=== PATIENT | male | born 2000 | race African-American/Black ===

== ENCOUNTER 2024-09-25 05:16 | Emergency (ER) | payer OTHER ==
[~2024-09-25] VITALS: Ht 172.7 cm; Wt 112.0 kg
[2024-09-25 05:27] VITALS: BP 130/90; PULSE 95; RESP 20; O2SAT 97
--- NOTE | 2024-09-25 06:04 | DVH ---
EXAM: CT HEAD WITHOUT CONTRAST INDICATION: Head Injury TECHNIQUE: CT of the head without intravenous contrast. Radiation Dose : 1. Head: CT Dose: CTDI volume is 63 mGy. Dose-length product is 1102 mGy*cm The dose indicators for CT are the volume Computed Tomography (CT) Dose Index (CTDIvol) and the Dose Length Product (DLP), and are measured in units of mGy and mGy-cm, respectively. These indicators are not patient dose, but values generated from the CT scanner acquisition factors. The report includes radiation exposure data for exposures received during this examination. COMPARISON: None FINDINGS: There is no evidence of acute intracranial hemorrhage, extra-axial collection, mass effect, midline s hift, herniation or hydrocephalus. The ventricles, sulci and cisterns are age appropriate. The reed-white differentiation is intact. The visualized paranasal sinuses and mastoid air cells are clear. The surrounding soft tissues and osseous structures are unremarkable. IMPRESSION: No acute intracranial abnormality. Radiation optimization: All CT scans at this facility use at least one of these dose optimization jose hniques: automated exposure control mA and/or kV adjustment per patient size (includes targeted exam s where dose is matched to clinical indication) or iterative reconstruction.
--- NOTE | 2024-09-25 06:04 | DVH ---
EXAM: CT CERVICAL WITHOUT CONTRAST HISTORY: Fall Injury COMPARISON: None CTDIvol 27 mGy, DLP 684 mGy*cm. TECHNIQUE: Multiple axial CT images of the spine were obtained using bone algorithm. Axial and coron al reformatting was done. Bone and soft tissue windows were reviewed. FINDINGS: No CT evidence of definite acute fracture, spinal dislocation, or significant appearing acute subluxa tion is seen. The visualized paraspinal soft tissues are grossly unremarkable. IMPRESSION: No definite CT evidence of acute fracture or dislocation of the bony cervical spine.
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
[2024-09-25] MEDS ORDERED: HALOPERIDOL LACTATE 5 MG/ML INJ VIAL ONE (12:42)
[2024-09-25] MEDS ORDERED: LORazepam 2MG/ML-1ML VIAL ONE (12:42)
== END 2024-09-25 07:26 | disposition left against medical advice (07) ==
LOC: ER 05:16
DX: S09.90XA Unspecified injury of head, initial encounter (principal); Z88.1 Allergy status to other antibiotic agents; Y04.8XXA Assault by other bodily force, initial encounter; Y93.89 Activity, other specified; Y92.488 Other paved roadways as the place of occurrence of the external cause; Y99.8 Other external cause status
CPT/HCPCS: 70450; 72125; 82947; 82962

== ENCOUNTER 2024-09-25 12:00 | Emergency (ER) | payer OTHER ==
[~2024-09-25] VITALS: Ht 172.7 cm; Wt 120.0 kg
[2024-09-25 12:30] VITALS: PULSE 97; RESP 18; O2SAT 95
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
[2024-09-25] MEDS: LORazepam 2MG/ML-1ML VIAL IM ONE ×2 (12:48→12:50)
[2024-09-25] MEDS: HALOPERIDOL LACTATE 5 MG/ML INJ VIAL IM ONE ×2 (12:49→12:50)
--- NOTE | 2024-09-25 13:52 | DVH ---
EXAM: CT HEAD WITHOUT CONTRAST INDICATION: fall TECHNIQUE: CT of the head without intravenous contrast. Radiation dose : 1. Head: CT Dose: CTDI volume is 47.84 mGy. Dose-length product is 865.61 mGy*cm The dose indicators for CT are the volume computed tomography (CT) dose index (CTDIvol) and the dose length product (DLP), and are measured in units of mGy and mGy-cm, respectively. These indicators are not patient dose, but values generated from the CT scanner acquisition factors. The report includes radiation exposure data for exposures received during this examination. COMPARISON: CT HEAD WITHOUT CONTRAST on DOS: 09/25/24, CT CERVICAL WITHOUT CONTRAST on DOS: 09/25/24 FINDINGS: There is no evidence of acute intracranial hemorrhage, extra-axial collection, mass effect, midline s hift, herniation or hydrocephalus. The ventricles, sulci and cisterns are age appropriate. The reed-white differentiation is intact. Patchy periventricular and subcortical white matter hypoattenuation is nonspecific but may be related to small vessel ischemic disease. The visualized paranasal sinuses and mastoid air cells are clear. The surrounding soft tissues and osseous structures are unremarkable. IMPRESSION: 1. No acute intracranial abnormality. Radiation optimization: All CT scans at this facility use at least one of these dose optimization jose hniques: Automated exposure control mA and/or kV adjustment per patient size (includes targeted exams where dose is matched to clinical indication) or iterative reconstruction.
[2024-09-25 18:15] VITALS: BP 99/60; RESP 15; O2SAT 98
--- NOTE | 2024-09-25 20:34 | DVHINCON2 ---
Date of Service if different f: Sep 25, 2024 Time of Service: 20:31 Consult Consult Note PSYCHIATRY ED NEW CONSULT HPI: 24 yo M pt with unclear PPH presents to ED BIBA for safety, psychiatric stabilization and possible med initiation/optimization in setting of homelessness, med noncompliance, AH, and AMS. Psychiatry consulted for safety evaluation and recommendations in context of current presentation Per report, pt found outside of grocery store with erratic behavior, hallucination, paranoid, refusing EMS intervention, required IM Versed en route to ED, combative and restless in ED necessitating 4 point and chemical restraints Per pt, reports "i have been homeless recently and just feeling really out it, I just need a place to rest and get help with housing" Currently denies depressed mood, hopelessness, helplessness, isolation, negative thoughts, loss of interest, or anhedonia. Denies anxiety/panic/OCD/PTSD symptoms. Adamantly denies SI/HI. Denies AVH/paranoia/catatonic/perceptual disturbances/personality changes. No overt manic, psychotic, major depressive, dissociative phenomena, panic, or somatic symptoms noted although pt still a bit drowsy Appears somewhat future oriented/goal directed Pt currently does not have psychiatrist/therapist out in community although has sought outpt MH services in past as a teen. Currently not on any psychotropic agents for almost a decade. Prior psych med trials include quetiapine and Fluoxetine as teen. Denies ETOH, THC or IDU prior to admission or hx of Never , no children, unemployed and homeless for past several months, no legal issues, no support system noted. Unknown trauma hx. Unknown FH. No acute medical issues although c/o headaches Does not have hx of suicide attempts, SIB/PSG, or prior psych hospitalizations/5150. Denies history of violence, aggression, or assaultive behaviors. Does not have access to firearms. Currently denies SI/HI/AVH. No safety concerns noted during encounter. MSE: General Appearance/Behavior: Alert and somewhat awake; appears bit older than stated age, overweight, disheveled, calm and cooperative, fair eye contact, no PMA/PMR, questionable historian Speech: coherent, slow rate, not overly spontaneous Thought Process: linear, logical, limited/concrete Thought Content: Abnormal Thoughts and Perceptions: None Homicidality / Violent Thoughts: None Suicidality: adamantly denies SI Hallucinations: denies AVH Delusions: denies paranoia, persecutory, or grandiose delusions Obsessions /compulsions : None Judgment and Insight: marginal/improved judgment with somewhat fair insight Mood & Affect: "just tired" with mood-congruent, appropriate Orientation: oriented to person, place, time Attention/Concentration: appears intact Memory: grossly intact Language: no unusual or inappropriate language Assessment: 24 yo M pt with unclear PPH presents to ED BIBA for safety, psychiatric stabilization and possible med initiation/optimization in setting of homelessness, med noncompliance, AH, and AMS Currently denies SI/HI/AVH - pt slowly appears to be more lucid and less thought disordered. 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 Thus, pt does not meet criteria for 5150 or involuntary inpatient psych admission as is not DTS, DTO or GD although voluntary inpt psychiatric hospitalization was offered but pt respectfully declined. Also declined further ED observation/reevaluation. No acute safety concerns noted. Acute suicide risk appears nonexistent to relatively low Pt currently does not have psychiatrist/therapist out in community and is not on any psychotropic meds Pt declined psychotropic med initiation at this time, expressed interest in consultation for housing resources due to recent homelessness Primary Diagnosis: Psychotic disorder unspecified. R/o SIPD Plan: Does not warrant involuntary inpatient psychiatric hospitalization or 5150 hold at this time No acute safety concerns Pt can be safely discharged from ED in AM s/p SW consultation Declined psychotropic med initiation at this time Supportive tx provided, discussed safety plan with pt Recommend SW consult to assist pt with post discharge housing assistance per pts request Instructed pt to call [phone] or return to ED if mood symptoms worsen or new onset SI/HI upon discharge Pt verbalized understanding and is receptive to above tx plan This case was discussed with ED nurse/provider and all parties in agreement with above tx plan Oziel Garrett MD Plan discussed with: Patient OZIEL GARRETT MD Sep 25, 2024 20:34
[2024-09-26] VITALS: PULSE 72
== END 2024-09-26 06:41 | disposition left against medical advice (07) ==
LOC: EDBD 12:00 → ER 12:00
DX: F25.9 Schizoaffective disorder, unspecified (principal)
CPT/HCPCS: 70450; 96372; 99285; J1630; J2060